=== PATIENT | female | born 1950 | race Caucasian/White ===

== ENCOUNTER 2023-03-04 09:40 | Outpatient (REF) | payer MEDICARE, SELFPAY ==
[2023-03-04 11:16] LABS: Folate 11.4 ng/mL (> or = 4.0); Vitamin B12 639 pg/mL (200-900)
[2023-03-06 09:04] LABS: Lyme Abs Screen <0.90 index
[2023-03-06 18:48] LABS: Homocysteine 11.7 umol/L (<10.4)
== END 2023-03-04 09:41 | disposition home or self-care (01) ==
LOC: HO.LAB 09:40
PROVIDERS: Visit Provider Psychiatry & Neurology Neurology
DX: F03.90 Unspecified dementia, unspecified severity, without behavioral disturbance, psychotic disturbance, mood disturbance, and anxiety (principal)
CPT/HCPCS: 36415; 82607; 82746; 83090; 86617; 86618

== ENCOUNTER 2025-03-27 09:41 | Outpatient (AMB) | payer OTHER, SELFPAY ==
--- NOTE | 2025-03-27 10:16 | MHC.OFFVIS ---
Intake Visit Reasons: 6m mci Allergies No Known Allergies Allergy (Verified 03/27/25 10:25) Medication List - Last Reconciled 03/27/25 by Alena Devries CNP amlodipine 5 mg PO DAILY cetirizine 10 mg PO DAILY PRN levothyroxine 125 mcg PO DAILY metoprolol succinate ER 12.5 mg PO DAILY rosuvastatin 5 mg PO DAILY HPI Comments Details: 74-year-old woman with mild cognitive impairment. She was diagnosed with R frozen shoulder in early 2019. She saw orthopedics and was given injection which helped. She was doing okay. Memory has been stable. She was living with family and still managing her own finances. She enjoyed reading [employer]. She was doing some exercises and going for walks, no falls. Mood was okay. Sleep was okay. One of her brothers who lived in [place] passed last month. [facility] Medical History (Updated 03/27/25 @ 10:18 by Alena Devries CNP) Hypertension Hyperlipidemia Hypothyroidism Hearing impairment MCI (mild cognitive impairment) Review of Systems Const Denies chills, Denies daytime sleepiness, Denies difficulty sleeping, Denies fatigue, Denies fever(s), Denies frequent falls, Denies headache(s), Denies increased appetite, Denies poor appetite, Denies snoring, Denies weakness, Denies weight gain and Denies weight loss Eyes Denies loss of vision ENT Denies vertigo, Denies dizziness and Denies headache(s) Card Denies chest pain at rest, Denies chest pain with activity, Denies syncope, Denies leg edema and Denies palpitations Resp Denies snoring GI Denies constipation, Denies heartburn, Denies diarrhea and Denies nausea Denies urinary frequency, Denies urinary incontinence and Denies urinary urgency Musc Denies abnormal gait, Denies numbness and Denies tingling Skin/Breast Denies dry skin and Denies rash Neuro Denies abnormal gait, Denies vertigo, Denies dizziness, Denies syncope, Denies frequent falls, Denies headache(s), Denies lack of coordination, Denies loss of vision, Reports memory loss, Denies numbness, Denies restless legs, Denies seizure-like activity, Denies tingling, Denies paresthesias, Denies tremor(s) and Denies weakness Psych Denies anxiety, Denies depression, Denies auditory hallucinations, Reports memory loss, Denies visual hallucinations and Denies suicidal ideation Endo Denies fatigue and Denies palpitations Physical Exam Const Other: General Appearance:? normal, in no acute distress. Skin:? no rashes, no significant birthmarks. Heart:? S1, S2 normal, no murmurs. Lungs:? clear anteriorly and posteriorly. Extremities:? no edema. Psych:? alert, cooperative with exam. Neuro Other: Mental Status:?Awake and alert with normal sp speech, fluency, comprehension, and affect. Cranial Nerves:?Pupils are equal, round and reactive to light. External occular muscles are intact. Visual jackson are full. Face is symmetrical. Facial sensations are normal. Tongue is midline. Palate elevates symmetrically. Shoulder shrugging is normal. Hearing to bedside conversation is okay with hearing aids. Sensory Exam:?....? Coordination:?No ataxia,?no titubation.? Gait Exam: Within normal limits. Extrapyramidal System:?No tremor, rigidity with normal facial expressions.? Pronator Drift:?Not present.? Involuntary Movements:?No tremors seen.? Speech:?Normal.? Assessment & Plan Assessment & Plan (1) MCI (mild cognitive impairment): Code(s): G31.84 - Mild cognitive impairment of uncertain or unknown etiology Category: Medical Plan: Discussed option for medications, not interested at this time. Stay physically and socially active. Coding Level of Care Code Est Pt Level 3 (72806) Diagnoses MCI (mild cognitive impairment) G31.84
--- OUTSIDE RECORDS SUMMARY | 2025-03-27 20:06 | XMS_ITS | Data Portability ---
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 She does have mild degenerative changes at the radial scaphoid joint. PLAN: I had a long discussion with the patient today about the diagnosis, prognosis, and recommended treatment for idiopathic adhesive capsulitis of the shoulder. I explained that idiopathic adhesive capsulitis of the shoulder is a self-limiting condition with gradual improvement in symptoms over a variable period of time, but most typically over 1 to 3 years. Non-operative and operative treatments do not alter the long-term natural history of adhesive capsulitis, but they do provide short-term symptomatic relief of pain and improvement in shoulder range of motion. There is general consensus that nonoperative management is the initial treatment of choice for adhesive capsulitis. Nonoperative treatments typically include physical therapy with a focus on gentle progressive four quadrant stretching and home exercise program, oral anti-inflammatory medications, and glenohumeral corticosteroid injections, which combine to allow accelerated pain relief and/or improvement in range of motion. Operative treatment (arthroscopic capsular release and manipulation under anesthesia) is an option if nonoperative treatment fails after a period of 6 months. Given the above. My recommendation is the followin. Activity modification, relative rest, and regular icing is encouraged for symptomatic management. 2. Risks, benefits, and alternatives to a RIGHT shoulder glenohumeral joint corticosteroid injection were discussed at length. the patient elected to proceed, signed informed consent was obtained. The procedure was performed as outlined below in the procedure note. No complications. Patient tolerated the injection well. 3. Over the counter NSAIDs (Ibuprofen, Naproxen) should be used as needed to help manage symptoms. Follow package directions and discontinue if persistent stomach discomfort arises. 4. Physical therapy referral for dedicated evaluation and treatment with a focus on gentle progressive four quadrant stretching and home exercise program. 5. Follow up: Return to clinic in 3 months for repeat clinical examination and range of motion check. If still having persistent shoulder stiffness or pain at that time, will consider a repeat glenohumeral joint corticosteroid injection at that time. At the conclusion of the visit, the patient verbally acknowledged that I answered all of their questions satisfactorily. harvey Not available 07/26/2024 10:41:49 10/25/2024 10/25/2024 IMPRESSION: 73-year-old [id number]-zito-[id number] nt woman with adhesive capsulitis of the RIGHT shoulder Additionally, she does have signs and symptoms of impingement we will focus on achieving motion first and treat the adhesive capsulitis. She does have mild degenerative changes at the radial scaphoid joint. PLAN: Marybeth is doing fantastic. She may continue with her home exercise program I told her to focus on scapular strengthening and improve posture to continue improve her range of motion. She is a has equal range of motion bilaterally. She may follow-up on an as-needed basis. PRIOR AR I had a long discussion with the patient today about the diagnosis, prognosis, and recommended treatment for idiopathic adhesive capsulitis of the shoulder. I explained that idiopathic adhesive capsulitis of the shoulder is a self-limiting condition with gradual improvement in symptoms over a variable period of time, but most typically over 1 to 3 years. Non-operative and operative treatments do not alter the long-term natural history of adhesive capsulitis, but they do provide short-term symptomatic relief of pain and improvement in shoulder range of motion. There is general consensus that nonoperative management is the initial treatment of choice for adhesive capsulitis. Nonoperative treatments typically include physical therapy with a focus on gentle progressive four quadrant stretching and home exercise program, oral anti-inflammatory medications, and glenohumeral corticosteroid injections, which combine to allow accelerated pain relief and/or improvement in range of motion. Operative treatment (arthroscopic capsular release and manipulation under anesthesia) is an option if nonoperative treatment fails after a period of 6 months. Given the above. My recommendation is the followin. Activity modification, relative rest, and regular icing is encouraged for symptomatic management. 2. Risks, benefits, and alternatives to a RIGHT shoulder glenohumeral joint corticosteroid injection were discussed at length. the patient elected to proceed, signed informed consent was obtained. The procedure was performed as outlined below in the procedure note. No complications. Patient tolerated the injection well. 3. Over the counter NSAIDs (Ibuprofen, Naproxen) should be used as needed to help manage symptoms. Follow package directions and discontinue if persistent stomach discomfort arises. 4. Physical therapy referral for dedicated evaluation and treatment with a focus on gentle progressive four quadrant stretching and home exercise program. 5. Follow up: Return to clinic in 3 months for repeat clinical examination and range of motion check. If still having persistent shoulder stiffness or pain at that time, will consider a repeat glenohumeral joint corticosteroid injection at that time. At the conclusion of the visit, the patient verbally acknowledged that I answered all of their questions satisfactorily. Not available 10/25/2024 10:31:46 Plan of Treatment Reminders Order Date Submit Date Provider Last Modified By Organization Details Last Modified Time Details Appointments None recorded. Lab None recorded. Referral physical therapist referral - 2-3 times per week for 12 weeks, work on range of motion, forward elevation, external rotation, internal rotation. No strengtheni ng. Frozen Shoulder 2024 025 [email or web address] Not available 10:59:57 Procedures None recorded. Surgeries None recorded. Imaging XR, wrist, 3 or more view 2024 025 [facility], [address], [address], [place], [address], 13:03:53 Medication Orders lidocaine (PF) 10 mg/mL (1 %) injection solution 2024 025 [email or web address] Not available 5 10:12:25 Marcaine (PF) 0.5 % (5 mg/mL) injection solution 2024 025 [email or web address] Not available 5 10:12:28 triamcinolo ne acetonide 40 mg/mL suspension for injection 2024 025 [email or web address] Not available 5 10:12:29 Patient TargetsNo targets recorded. Patient Instructions Encounter Date Encounter Id Patient Instructions Last Modified By Organization Details Last Modified Time 07/26/2024 [id number] [facility] Frozen Shoulder Not available 07/26/2024 10:40:05 10/25/2024 [id number] [facility] Frozen Shoulder Not available 10/25/2024 10:31:46 Reason for Referral Physical Therapist Referral for Adhesive capsulitis of shoulder 2-3 times per week for 12 weeks, work on range of motion, forward elevation, external rotation, internal rotation. No strengthening. Frozen Shoulder Referring Physician: Octavio Contreras, Orthopedic Surgery, Encounter Date: 07/26/2024 Results Created Date Observation Date Name Description Value Unit Range Abnormal Flag Note LastModifiedBy Organization Detail LastModifiedTime 07/27/1906/03/2024 XR, shoul heydi, 2 or more view No observ ation record ed. [email or web address] Not Available 2024 10:24:08 Result Notes None recorded. Problems Name Problem SNOMED Code Status Onset Date Resolution Date Notes Provider Name and Address Organization Details Recorded Time Adhesive capsulitis of shoulder 066183081 Active 2024 Octavio Contreras MD [address], [place], [address] , [place] [facility] 5 10:39:53 Adhesive capsulitis of shoulder 852225103 Active 2024 Octavio Contreras MD [address], [place], [address] , [place] [facility], [facility] 5 10:40:04 Pain of right wrist 4424209647294 00 Active 2024 Octavio Contreras MD [address] [facility],[address], [place], [address] , [facility], [facility] 5 10:21:44 Problem Notes None recorded. Procedures Surgical History Date Name Laterality Status Provider Name and Address Organization Details Recorded Time AJR Shoulder GH Inj completed Octavio Contreras MD [address] [facility],[address], [place], [address], [facility] 07/26/2024 10:41:19 Imaging Results None recorded. Procedure Notes None recorded. Medical Equipment None Reported. Allergies Allergen ID Allergen Name Allergen Category Reaction Reaction Severity Criticality Documentation Date Start Date Code Code System Note Provider Name and Address Organization Details Recorded Time 51421 lisinopri l medicatio n Not available Not available Not available 10/25/2024 00798 RxNorm Raquel García stehpania, [facility] 10:11:19 Medications Name Sig Start Date Stop Date Status Note LastModified by Organization Details LastModified Time prednisone 20 mg tablet TAKE 2 TABLETS BY MOUTH DAILY X 3 DAYS THEN 1 TABLET BY MOUTH DAILY X 3 DAYS active Not Available Not Available No t Available amlodipine 2.5 mg tablet TAKE 1 TABLET BY MOUTH DAILY active Not Available Not Available No t Available aspirin 81 mg tablet,claire yed release TAKE 1 TABLET BY MOUTH DAILY active Not Available Not Available No t Available benzonatate 100 mg capsule TAKE 1 CAPSULE BY MOUTH THREE TIMES DAILY NEEDED FOR COUGH active Not Available Not Available No t Available triamcinolo ne acetonide 40 mg/mL suspension for injection Take 80 mg by injection route. 10/25 completed Not Available Not Available Not Available metoprolol succinate ER 25 mg tablet,exte nded release 24 hr TAKE 1/2 TABLET BY MOUTH DAILY active Not Available Not Available No t Available albuterol sulfate HFA 90 mcg/actuati on aerosol inhaler INHALE 2 PUFFS INTO THE LUNGS EVERY 4 HOURS NEEDED FOR COUGH OR WHEEZING 10/25 completed Not Available Not Available Not Available levothyroxi ne 112 mcg tablet TAKE 1 TABLET BY MOUTH DAILY active Not Available Not Available No t Available rosuvastati n 5 mg tablet TAKE 1 TABLET BY MOUTH DAILY active Not Available Not Available No t Available Marcaine (PF) 0.5 % (5 mg/mL) injection solution Take 4 mL by injection route. 10/25 completed Not Available Not Available Not Available lidocaine (PF) 10 mg/mL (1 %) injection solution Take 4 mL by injection route. 10/25 completed Not Available Not Available Not Available Vitals Date Recorded Body height Body mass index (BMI) Body weight Provider Name and Address Organization Details Last Updated DateTime 10/25/2024 157.48 cm 23.8 kg/m2 66919.[address] Raquel García [place] [facility] 10/25/2024 10:11:30 Social History None recorded. Functional Status None recorded. Mental Status None recorded. Family History Nothing Reported. Medical History No medical history recorded. Gynecological HistoryNo gynecological history recorded. Obstetrics History GPAL:G 0 P 0 0 0 0 Past Encounters Encounter ID Performer Location Encounter Start Date Encounter Closed Date Diagnosis/Indication Diagnosis SNOMED-CT Code Diagnosis ICD10 Code Diagnosis IMO Codes Diagnosis Note [id number] MD STEFANY Farooq [facility] [address] [facility] [address] [place] [address] 07/26/2024 10:03:27 07/26/2024 10:59:57 Pain of right wrist 8290643893 71356 M25.531 [id number] Adhesive c apsulitis of shoulder 051979584 M75.00 [id number] MD STEFANY Farooqbob [address] [facility] [address] [place] [address] 10/25/2024 10:05:13 10/25/2024 10:21:59 Adhesive capsulitis of shoulder 986104828 M75.00 12813143 Pain of right wrist 3169 747963 41895 M25.531 060733 Health Concerns Section Related Observation LastModified by Organization Detai ls LastModified Time None Recorded Concern Status LastModified by Organization Details LastModified Time None Recorded Advance Directives Directive None Recorded Payers Insurance Date Sequence Insurance Name Policy Number Policy Garza Covered Member ID Garza Member ID Guarantor Name 07/18/2024 1 [facility] (MEDICARE REPLACEMENT/A DVANTAGE - PPO) [id number] Marybeth Echeverria [id number] Marybethbuddy Hard[place]ito Notes Date Note Type Note Provider Name and Address Organization Details Recorded Time 07/26/2024 text/html ROS as noted in the HPI 73-year-old [id number] t woman resending with right shoulder pain and right wrist pain. She states that her right shoulder is been giving her some issues with respect to her range of motion as well as pain with mid arc of motion. Additionally she does have some dorsal wrist pain that is intermittent. She did have a carpal tunnel release several years ago that provide her with relief with respect to the right shoulder. She previously saw her primary care physician who gave her prednisone that made her feel dizzy and the medication sort of worked and alleviated her pain. He rates her pain 7.5 out of 10 endorses night symptoms. She has not done anything else for the SPECT to treatment. 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 Octavio Contreras MD [address], [address], [employer] [facility] 07/26/2024 10:42:34 10/25/2024 text/html ROS as noted in the HPI Patient returns to the office today. She has no pain. She doing her home exercises he felt the injection was very helpful. [id number] t woman resending with right shoulder pain and right wrist pain. She states that her right shoulder is been giving her some issues with respect to her range of motion as well as pain with mid arc of motion. Additionally she does have some dorsal wrist pain that is intermittent. She did have a carpal tunnel release several years ago that provide her with relief with respect to the right shoulder. She previously saw her primary care physician who gave her prednisone that made her feel dizzy and the medication sort of worked and alleviated her pain. He rates her pain 7.5 out of 10 endorses night symptoms. She has not done anything else for the SPECT to treatment. 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 Octavio Contreras MD [address] [address], [place], [address], [facility] 10/25/2024 10:31:58 OBGyn Episode No OBEpisode recorded.
== END 2025-03-27 10:31 | disposition home or self-care (01) ==
LOC: HO.HSM 09:42
PROVIDERS: PCP Internal Medicine; Referring Provider Internal Medicine; Visit Provider Registered Nurse
DX: G31.84 Mild cognitive impairment of uncertain or unknown etiology (principal)
CPT/HCPCS: 99213